=== PATIENT | male | born 1935 | race African-American/Black ===

== ENCOUNTER 2023-03-18 07:45 | Emergency (ER) | payer OTHER ==
[~2023-03-18] VITALS: Ht 177.8 cm; Wt 80.0 kg
[2023-03-18 07:51] VITALS: O2SAT 99
[2023-03-18 09:26] LABS: BASOPHILS % 0.7 % (0.0-2.0); EOSINOPHILS % 0.5 % (0.0-5.0); HEMATOCRIT. 38.6 % (42.0-52.0); HEMOGLOBIN. 12.3 g/dL (14.0-18.0); LYMPHOCYTES % 12.8 % (20.0-50.0); MEAN CORPUSCULAR HEMOGLOBIN 27.3 pg (28.0-32.0); MEAN CORPUSCULAR HGB CONC 31.8 g/dL (31.0-37.0); MEAN CORPUSCULAR VOLUME 85.8 fL (80.0-94.0); MEAN PLATELET VOLUME 7.5 fl (7.4-10.4); MONOCYTES % 10.4 % (2.0-8.0); NEUTROPHILS % 75.6 % (40.0-76.0); PLATELET 190 x1000/uL (130-400); RED CELL DISTRIBUTION WIDTH 14.3 % (11.6-14.6)
[2023-03-18 09:48] LABS: CLARITY URINE CLOUDY (CLEAR); COLOR URINE YELLOW (YELLOW); GLUCOSE URINE NEGATIVE (NEGATIVE); KETONES URINE NEGATIVE (NEGATIVE); LEUKOCYTE ESTERASE URINE 3+ (NEGATIVE); NITRITE URINE NEGATIVE (NEGATIVE); OCCULT BLOOD URINE 2+ (NEGATIVE); PH URINE 6.5 (4.5-8.0); PROTEIN URINE TRACE (NEGATIVE); SPECIFIC GRAVITY URINE 1.015 (1.005-1.030)
[2023-03-18 09:49] LABS: ALANINE AMINOTRANSFERASE 50 IU/L (10-49); ALBUMIN 3.5 g/dL (3.2-4.8); ASPARTATE AMINOTRANSFERASE 104 IU/L (<34); CALCIUM 8.7 mg/dL (8.7-10.4); CARBON DIOXIDE 26 mEq/L (21-32); CHLORIDE 103 mEq/L (98-107); CREATININE 1.3 mg/dL (0.6-1.3); GLUCOSE 105 mg/dL (70-105); POTASSIUM 4.4 mEq/L (3.5-5.1); PROTEIN TOTAL 6.2 g/dL (6.0-8.3); SODIUM 138 mEq/L (136-145); UREA NITROGEN BLOOD 17 mg/dL (9-23)
[2023-03-18 10:07] LABS: SQUAMOUS EPITHELIAL CELL URINE RARE /lpf (RARE/1+)
[2023-03-18 10:08] LABS: BACTERIA URINE 2+; RBC URINE 0-2 /hpf (0-2)
[2023-03-18 10:09] LABS: WBC URINE TNTC /hpf (0-2)
[2023-03-18 10:22] LABS: PROTHROMBIN TIME 10.8 sec (9.6-11.0)
[2023-03-18 10:41] LABS: TROPONIN I HIGH SENSITIVITY 108 ng/L (3.0-53)
[2023-03-18] MEDS ORDERED: SODIUM CHLORIDE 0.9% 1,000 ML IV ONE (10:45)
[2023-03-18] MEDS ORDERED: AZITHROMYCIN 500MG/250ML 250 ML IV ONE (10:45)
[2023-03-18] MEDS ORDERED: CEFTRIAXONE 1GM PREMIX 50 ML IV ONE (10:45)
[2023-03-18 15:11] LABS: TROPONIN I HIGH SENSITIVITY 94 ng/L (3.0-53)
[2023-03-18 20:31] VITALS: BP 117/64; PULSE 93; RESP 18; TEMP 98.7
== END 2023-03-18 20:30 | disposition short-term general hospital (02) ==
LOC: ER 08:12
DX: I21.4 Non-ST elevation (NSTEMI) myocardial infarction (principal); N39.0 Urinary tract infection, site not specified; J18.9 Pneumonia, unspecified organism; I10 Essential (primary) hypertension
CPT/HCPCS: 99291; 96365; 96367; 96366; 80053; 81003; 83880; 83605; 85025; 85610; 87040; 87086; 87186; 84484; 87077; 36415; 71045; 93005; J0456; J0696; J7030

== ENCOUNTER 2023-10-04 12:30 | Emergency (ER) | payer OTHER ==
[~2023-10-04] VITALS: Ht 175.3 cm; Wt 75.0 kg
[2023-10-04 12:35] VITALS: TEMP 98.7; O2SAT 97
[2023-10-04 14:48] LABS: BASOPHILS % 0.6 % (0.0-2.0); EOSINOPHILS % 1.2 % (0.0-5.0); HEMATOCRIT. 41.6 % (42.0-52.0); HEMOGLOBIN. 13.7 g/dL (14.0-18.0); LYMPHOCYTES % 35.4 % (20.0-50.0); MEAN CORPUSCULAR HEMOGLOBIN 28.1 pg (28.0-32.0); MEAN CORPUSCULAR VOLUME 85.2 fL (80.0-94.0); MEAN PLATELET VOLUME 7.4 fl (7.4-10.4); MONOCYTES % 7.3 % (2.0-8.0); NEUTROPHILS % 55.5 % (40.0-76.0); PLATELET 157 x1000/uL (130-400); RED BLOOD CELL COUNT 4.88 mill/uL (4.7-6.1); RED CELL DISTRIBUTION WIDTH 14.9 % (11.6-14.6); WHITE BLOOD COUNT 8.9 x1000/uL (4.5-11.0)
[2023-10-04 14:54] LABS: CHLORIDE 106 mEq/L (98-107); POTASSIUM 3.9 mEq/L (3.5-5.1); SODIUM 139 mEq/L (136-145)
[2023-10-04 14:55] LABS: CALCIUM 8.5 mg/dL (8.7-10.4); CARBON DIOXIDE 28 mEq/L (21-32)
[2023-10-04 15:00] LABS: CREATININE 0.9 mg/dL (0.6-1.3); GLUCOSE 91 mg/dL (70-105); UREA NITROGEN BLOOD 15 mg/dL (9-23)
[2023-10-04] MEDS ORDERED: IBUP-2028 MT (15:45)
[2023-10-04] MEDS ORDERED: APIX5TAB MT (15:45)
[2023-10-04] MEDS ORDERED: LIDO1ADH23 TP (15:45)
[2023-10-04] MEDS ORDERED: SULF1TAB48 MT (15:45)
[2023-10-04] MEDS ORDERED: CEPH500C2 MT (15:45)
[2023-10-04] MEDS: IBUPROFEN 400MG TABLET PO ONE (16:22)
[2023-10-04] MEDS: ACETAMINOPHEN 325MG TABLET PO ONE (16:22)
[2023-10-04] MEDS: SULFAMETHOXAZOLE/TRIMETHOPRIM 800/160MG TABLET PO ONE (16:23)
[2023-10-04] MEDS: CEPHALEXIN 250MG CAPSULE PO ONE (16:23)
[2023-10-04] MEDS: APIXABAN 5 MG TABLET PO SCH (18:23)
[2023-10-04 19:32] VITALS: BP 151/81; PULSE 76; RESP 16
[2023-10-04 19:46] LABS: CLARITY URINE CLOUDY (CLEAR); COLOR URINE YELLOW (YELLOW); GLUCOSE URINE NEGATIVE (NEGATIVE); KETONES URINE NEGATIVE (NEGATIVE); LEUKOCYTE ESTERASE URINE 2+ (NEGATIVE); NITRITE URINE POSITIVE (NEGATIVE); OCCULT BLOOD URINE 1+ (NEGATIVE); PROTEIN URINE TRACE (NEGATIVE); SPECIFIC GRAVITY URINE 1.021 (1.005-1.030)
[2023-10-04 19:54] LABS: BACTERIA URINE 4+; SQUAMOUS EPITHELIAL CELL URINE FEW /lpf (RARE/1+)
[2023-10-04 19:55] LABS: WBC URINE 25-50 /hpf (0-2)
== END 2023-10-04 19:49 | disposition short-term general hospital (02) ==
LOC: ER 12:30 → CANBEDREQ 10-06 22:37
DX: I82.401 Acute embolism and thrombosis of unspecified deep veins of right lower extremity (principal); I10 Essential (primary) hypertension
CPT/HCPCS: 36415; 73562; 80048; 81003; 83605; 83880; 85025; 93970; 99285